=== PATIENT | male | born 1980 | race African-American/Black ===

== ENCOUNTER 2022-06-18 21:08 | Emergency (ER) | payer SELFPAY ==
[2022-06-18] VITALS (9 sets, daily range): BP systolic 121–144; BP diastolic 80–107; PULSE 69–90; RESP 12–19; TEMP 36.8; O2SAT 97–100
--- NOTE | 2022-06-18 22:36 | ECG_ITS ---
Measurements Intervals [place] Rate: 65 P: 40 [place]: 141 QRS: 9 QRSD: 91 T: 32 QT: 387 QTc: 403 Interpretive Statements SINUS RHYTHM DELAYED PRECORDIAL R/S TRANSITION ST ELEVATION IN DIFFUSE LEADS- PROBABLY EARLY REPOLARIZATION ABNORMALITY BASELINE ARTIFACT- I, II, AVR, AVL BORDERLINE ECG NO PREVIOUS ECG AVAILABLE FOR COMPARISON Electronically Signed On 06-19-2022 6:42:03 CDT by Shoaib Ochoa D.O.
--- NOTE | 2022-06-18 23:28 | PC.NURSE ---
This RN assumed care of patient
[2022-06-18] MEDS: SODIUM CHLORIDE 0.9% IV 1,000 ML 999 ML IV CONT (23:35)
[2022-06-18] MEDS: ACETAMINOPHEN 500 MG TABLET 1000 MG PO (23:36)
[2022-06-18] MEDS: METOCLOPRAMIDE HCL INJ 10 MG/2 ML VIAL IV PUSH (23:36)
[2022-06-18] MEDS: KETOROLAC 30 MG/ML VIAL (*BKC) IV PUSH (23:37)
[2022-06-18] MEDS: diphenhydrAMINE HCl INJ 50 MG/ML VIAL 25 MG IV PUSH (23:38)
--- NOTE | 2022-06-18 23:39 | ED.HA ---
HPI - Headache General Chief Complaint: Headache Stated Complaint: headache Time Seen by Provider: 06/18/22 21:56 Source: patient Mode of arrival: ambulatory Limitations: no limitations History of Present Illness HPI Narrative: Patient is a 41-year-old male who presents ED with report of left-sided headache. Patient reports having pain across his forehead and down the left side of his face into his left jaw and neck. He states the pain began around 1 PM today, 06/18. States he is unable to specifically localize pain, seems most concentrated around jaw. He denies ever having pain like this before. Denies history of migraines. He tried taking Tylenol without relief. Pain persisted, prompting his presentation. He also reports mild left ear comfort, denies any dental pain, vision changes, dizziness, lightheadedness, neck pain, fevers, chest pain, shortness of breath, weakness, confusion, photophobia, phonophobia, nausea, vomiting. Related Data Allergies Allergy/AdvReac Type Severity Reaction Status Date / Time No Known Allergies Allergy Unknown Unverified 06/18/22 21:50 Review of Systems Review of Systems: CONSTITUTIONAL: Denies fever, chills, or sweats. EYES: Denies visual changes. ENT: See HPI. CARDIOVASCULAR: Denies chest pain. RESPIRATORY: Denies dyspnea. GASTROINTESTINAL: Denies abdominal pain, nausea, vomiting. MUSCULOSKELETAL: Denies neck pain. NEUROLOGIC: See HPI. All systems reviewed & are unremarkable except as noted in HPI and below PMFSH Past Medical History Medical History (Updated 06/19/22 @ 02:46 by Chata Vincent PA-C) No pertinent past medical history Surgical History Surgical History (Updated 06/18/22 @ 23:39 by Chata Vincent PA-C) No pertinent past surgical history Social History Social History (Updated 06/18/22 @ 23:39 by Chata Vincent PA-C) Smoking status: Never smoker Exam Narrative: GENERAL: Well appearing, well-nourished, non-toxic, in no acute distress. HEAD: Normocephalic, atraumatic. EYES: PERRLA/EOMI, conjunctiva clear. No nystagmus. ENT: Dental carry to left upper posterior molar, no significant redness or swelling around upper lower gumline. No tenderness along gumlines. No significant tenderness to palpation along mandible. No TM erythema or bulging bilaterally. NECK: Supple. No adenopathy, no masses. Full range of motion of neck. RESPIRATORY: Airway patent, respirations nonlabored. Clear to auscultation bilaterally, no rales, rhonchi, wheezing. CARDIOVASCULAR: Regular rate and rhythm without murmurs, rubs, or gallops. Radial pulses 2+ and equal bilaterally. MUSCULOSKELETAL: Moves all extremities. Strength/ROM intact without gross deformities. SKIN: Warm, dry, normal color. No rashes. NEURO: A&O X3. Speech clear. Cranial nerves II-XII grossly intact. Steady gait. No ataxic movements. No focal deficits. PSYCHIATRIC: Appropriate mood and affect. Normal interaction. Course Vital Signs Vital signs: Vital Signs Temperature 98.2 F 06/18/22 21:37 Pulse Rate 87 06/18/22 21:37 Respiratory Rate 16 06/18/22 21:37 Blood Pressure 122/85 06/18/22 21:37 Pulse Oximetry 98 06/18/22 21:37 Oxygen Delivery Room Air 06/18/22 21:37 Temperature 98.2 F 06/18/22 21:37 Pulse Rate 66 06/19/22 02:31 Respiratory Rate 17 06/19/22 02:31 Blood Pressure 129/89 06/19/22 02:31 Pulse Oximetry 99 06/19/22 02:31 Oxygen Delivery Room Air 06/18/22 21:37 MDM - Headache MDM Narrative Medical decision making narrative: Patient presented to ED with several hour history of left-sided headache, jaw pain, neck pain. Patient's vital stable upon arrival. No neurologic deficits on exam. No history of migraines. No other symptoms reported to suggest migraine type pain, but will try migraine cocktail to see if this provides relief. Patient had only tried Tylenol prior to arrival. Will obtain EKG and troponin to ensure no cardiac etiology
[2022-06-18 23:54] LABS: Troponin I 0.032 ng/mL (0.000-0.034)
[2022-06-19] VITALS (8 sets, daily range): BP systolic 121–140; BP diastolic 82–89; PULSE 65–71; RESP 16–18; O2SAT 99–100
[2022-06-19 02:16] LABS: Basophils Percent Auto 0.4 % (0.2-1.2); Eosinophils Percent Auto 0.9 % (0-4.4); Hematocrit 41.5 % (42.0-52.0); Hemoglobin 14.1 g/dL (14.0-18.0); Immature Granulocyte Absolute 0.01 K/mm3 (0.00-0.031); Immature Granulocyte Percent A 0.2 % (0-0.5); Lymphocytes Absolute Auto 0.82 K/mm3 (0.9-3.2); Lymphocytes Percent Auto 17.9 % (18.3-44.2); Mean Corpuscular Hemoglobin 30.3 pg (26-34); Mean Corpuscular Volume 89.1 fl (80-100); Mean Platelet Volume 9.6 fl (7.4-10.4); Monocytes Absolute Auto 0.1 K/mm3 (0.1-0.6); Monocytes Percent Auto 3.1 % (2.6-8.5); Neutrophils Absolute Auto 3.6 K/mm3 (1.3-6.7); Neutrophils Percent Auto 77.5 % (45.5-73.1); Platelet Count Result 183 k/mm3 (150-375); Red Blood Count 4.66 M/mm3 (4.6-6.20); White Blood Count 4.6 K/mm3 (4.5-10.0)
[2022-06-19 02:26] LABS: Prothrombin Time 13.2 Seconds (11.1-14.7)
[2022-06-19 02:27] LABS: Partial Thromboplastin Time 29.2 SECONDS (22.3-36.8)
[2022-06-19 02:40] LABS: Troponin I 0.031 ng/mL (0.000-0.034)
[2022-06-19 03:19] LABS: Alanine Aminotransferase 52 U/L (6-50); Albumin Level 4.6 g/dL (3.5-5.1); Alkaline Phosphatase 64 U/L (38-126); Anion Gap 9 mmol/L (8-16); Aspartate Amino Transferase 51 U/L (17-59); Bilirubin,Total 0.7 mg/dL (0.2-1.3); Blood Urea Nitrogen 13 mg/dL (9-20); Calcium 8.5 mg/dL (8.4-10.2); Carbon Dioxide 20 mmol/L (22-30); Chloride 107 mmol/L (98-107); Estimated CRCL calculation 94 ml/min; Estimated Glomerular Filt Rate > 60; Glucose 115 mg/dL (65-110); Potassium 4.5 mmol/L (3.4-5.0); Sodium 136 mmol/L (137-145)
== END 2022-06-19 03:56 | disposition home or self-care (01) ==
PROVIDERS: Emergency Provider Physician Assistant
DX: R51.9 Headache, unspecified (principal); R68.84 Jaw pain; R94.31 Abnormal electrocardiogram [ECG] [EKG]
CPT/HCPCS: 36415; 80053; 84484; 85025; 85610; 85730; 93005; 96361; 96374; 96375; 99284; A9270; J1100; J1200; J1885; J2765; J7030